=== PATIENT | male | born 1985 | race African-American/Black ===

== ENCOUNTER 2024-07-28 14:24 | Observation (INO) | payer OTHER ==
[2024-07-28] MEDS: PANTOPRAZOLE 40 MG/10 ML VIAL IVP STA (15:54)
[2024-07-28] MEDS: LORazepam 2 MG/ML INJ IV STA ×2 (15:55→18:00)
[2024-07-28] MEDS: THIAMINE 100 MG/ML 2 ML VIAL IM STA (15:55)
[2024-07-28] MEDS: ONDANSETRON 4 MG/2 ML VIAL IVP STA (15:55)
--- NOTE | 2024-07-28 15:57 | XR ---
EXAMINATION TYPE: XR chest 1V portable DATE OF EXAM: 07/28/2024 COMPARISON: NONE CLINICAL INDICATION: Male, 38 years old with history of abdominal pain; TECHNIQUE: Single frontal view of the chest is obtained. FINDINGS: Slightly elevated left hemidiaphragm. There is no focal air space opacity, pleural effusion , or pneumothorax seen. The cardiac silhouette size is within normal limits. The osseous structure s are intact. IMPRESSION: No acute cardiopulmonary process. [facility], , 07/28/2024 3:54 PM
[2024-07-28] MEDS: SODIUM CHLORIDE 0.9% 1,000 ML IV ONE (15:59)
[2024-07-28] MEDS: SODIUM CHLORIDE 0.9% 1,000 ML IV SCH (15:59)
[2024-07-28 16:26] LABS: Basophils % (A) 0 %; Eosinophils # (A) 0.1 k/uL (0-0.7); Eosinophils % (A) 1 %; HCT 39.5 % (39.0-53.0); HGB 13.1 gm/dL (13.0-17.5); Lymphocytes # (A) 0.9 k/uL (1.0-4.8); Lymphocytes % (A) 11 %; MCH 30.2 pg (25.0-35.0); MCHC 33.2 g/dL (31.0-37.0); MCV 91.1 fL (80.0-100.0); Mean Platelet Volume 8.2; Monocytes # (A) 0.4 k/uL (0-1.0); Monocytes % (A) 5 %; Neutrophils # (A) 6.7 k/uL (1.3-7.7); Neutrophils % (A) 82 %; Platelet Count 153 k/uL (150-450); RBC 4.34 m/uL (4.30-5.90); RDW 15.5 % (11.5-15.5); WBC 8.2 k/uL (3.8-10.6)
[2024-07-28 16:44] LABS: ALT 32 U/L (4-49); AST 61 U/L (17-59); African American GFR (CKD) >90 (>60 ml/min/1.73 sqM); Albumin 3.2 g/dL (3.5-5.0); Alcohol <10 mg/dL; Alkaline Phosphatase 113 U/L (38-126); Amylase 40 U/L (30-110); Anion Gap 4 mmol/L; Blood Urea Nitrogen <2 mg/dL (9-20); Calcium 8.4 mg/dL (8.4-10.2); Carbon Dioxide 29 mmol/L (22-30); Chloride 101 mmol/L (98-107); Glucose 104 mg/dL (74-99); INR 1.1 (<1.2); Lipase 233 U/L (23-300); Non-African American GFR(CKD) >90 (>60 ml/min/1.73 sqM); Partial Thromboplastin Time 26.3 sec (22.0-30.0); Potassium 3.5 mmol/L (3.5-5.1); Prothrombin Time 11.6 sec (10.0-12.5); Sodium 134 mmol/L (137-145); Total Bilirubin 0.7 mg/dL (0.2-1.3); Total Protein 6.2 g/dL (6.3-8.2)
[2024-07-28] MEDS ORDERED: NALOXONE 0.4 MG/ML 1 ML VIAL IV PRN (17:08)
[2024-07-28] MEDS: diphenhydrAMINE 50 MG/ML 1 ML VIAL IVP STA (18:00)
[2024-07-28] MEDS: METOCLOPRAMIDE 5 MG/ML 2 ML VIAL IVP STA (18:00)
--- NOTE | 2024-07-28 19:27 | ED ---
General Adult HPI - General Chief complaint: Alcohol Stated complaint: ETOH withdrawl Time Seen by Provider: 07/28/24 15:10 Source: patient, EMS, RN notes reviewed, old records reviewed Mode of arrival: EMS Limitations: no limitations - History of Present Illness Initial comments: Patient is a 38-year-old male who presents emergency department complaining of alcohol withdrawals. Presents from [place] where he was sent here over concern for alcohol drawl's. States he also had some hematemesis yesterday as well as one episode this morning. Unknown how much he actually had in terms of the hematemesis. States he last drank alcohol approximately 1 day ago. Has gone through bathroom alcohol withdrawals with seizures. Presents for further evaluation at this time. Endorses mild nausea. Is not on blood thinners. No other acute complaints at this time. - Related Data Home Medications Medication Instructions Recorded Confirmed No Known Home Medications 07/28/24 07/28/24 Allergies Allergy/AdvReac Type Severity Reaction Status Date / Time haloperidol [From Haldol] Allergy Unknown Verified 07/28/24 15:48 Review of Systems ROS Statement: Those systems with pertinent positive or pertinent negative responses have been documented in the HPI. Review of Systems: CONST: Denies fever EYES: Denies blurry vision ENT: Denies nasal congestion C/V: Denies Chest pain RESP: Denies shortness of breath GI: Endorses abdominal discomfort : Denies dysuria SKIN: Denies rash. MSK: Denies joint pain. NEURO: Denies headache ROS Other: All systems not noted in ROS Statement are negative. Past Medical History Past Medical History: Asthma Additional Past Medical History / Comment(s): etoh abuse, solitary kidney, cleft pallate History of Any Multi-Drug Resistant Organisms: None Reported Past Surgical History: No Surgical Hx Reported Past Psychological History: No Psychological Hx Reported Smoking Status: Current every day smoker Past Alcohol Use History: Abuse Past Drug Use History: Marijuana General Exam - General Exam Comments Initial Comments: General: Appears with alcohol withdrawals. HEAD: Normal with no signs of head trauma. EYES: EOMI ENT: Hearing grossly intact, normal oropharynx. No intra oral bleeding. RESPIRATORY: Clear breath sounds bilaterally. No wheezes, rales, or rhonchi. C/V: Regular rate and rhythm. S1 and S2 auscultated, no edema, peripheral pulses 2+ and intact throughout ABD: Abdomen soft, nondistended. Mild tenderness to palpation in the epigastric region. No guarding or rebound tenderness. No peritoneal signs. EXT: Normal range of motion, no obvious deformity SKIN: No rashes or lesions observed on exposed skin. NEURO: Alert and oriented x 4. Limitations: no limitations Course Vital Signs 07/28/24 07/28/24 07/28/24 14:51 16:19 18:04 Temperature 99.1 F Pulse Rate 104 H 110 H 105 H Respiratory 22 18 18 Rate Blood Pressure 167/107 156/112 146/104 O2 Sat by Pulse 99 97 98 Oximetry Medical Decision Making - Medical Decision Making Was pt. sent in by a medical professional or institution (, PA, INVESTMENT SALES ASSISTANT, urgent care, hospital, or custodial...) When possible be specific @ -No Did you speak to anyone other than the patient for history (EMS, parent, family, police, friend...)? What history was obtained from this source @ -No Did you review nursing and triage notes (agree or disagree)? Why? @ -I reviewed and agree with nursing and triage notes Were old charts reviewed (outside hosp., previous admission, EMS record, old EKG, old radiological studies, urgent care reports/EKG's, custodial records)? Report findings @ -No old charts were reviewed Differential Diagnosis (chest pain, altered mental status, abdominal pain women, abdominal pain men, vaginal bleeding, weakness, fever, dyspnea, syncope, headache, dizziness, GI bleed, back pain, seizure, CVA, palpatations, mental health, musculoskeletal)? @ -Alcohol withdrawals, pancreatitis, GI bleed. This list is not all inclusive. EKG interpreted by me (3pts min.). @ -As above X-rays interpreted by me (1pt min.). @ -Chest x-ray reveals no obvious acute cardiopulmonary process. CT interpreted by me (1pt min.). @ -None done U/S interpreted by me (1pt. min.). @ -None done What testing was considered but not performed or refused? (CT, X-rays, U/S, labs)? Why? @ -None What meds were considered but not given or refused? Why? @ -None Did you discuss the management of the patient with other professionals (professionals i.e. , PA, INVESTMENT SALES ASSISTANT, lab, RT, psych nurse, social work associate, disability services coordinator, teacher, strike operations officer, family independence case manager)? Give summary @ -Discussed with the admitting team, ARJUN Posey of [facility] who accepted the admission. Was smoking cessation discussed for >3mins.? @ -No Was critical care preformed (if so, how long)? @ -Yes, 32 minutes. Were there social determinants of health that impacted care today? How? (Homelessness, low income, unemployed, alcoholism, drug addiction, transportation, low edu. Level, literacy, decrease access to med. care, skilled nursing, rehab)? @ -No Was there de-escalation of care discussed even if they declined (Discuss DNR or withdrawal of care, Hospice)? DNR status @ -No What co-morbidities impacted this encounter? (DM, HTN, Smoking, COPD, CAD, Cancer, CVA, ARF, Chemo, Hep., AIDS, mental health diagnosis, sleep apnea, morbid obesity)? @ -None Was patient admitted / discharged? Hospital course, mention meds given and route, prescriptions, significant lab abnormalities, going to OR and other pertinent info. @ -Presents with alcohol withdrawals as well as stated hematemesis yesterday 1 episode this morning. Is not on thinners. No recent hematemesis. None in the department. Difficult time quantifying it. Is in acute alcohol withdrawals. We will obtain general workup, and patient will be administered IV Protonix, flu ids, as well as IV Ativan. He was in agreement this plan. Also given IV Zofran. Vitals are within acceptable limits. Mild tachycardia. EKG shows nonspecific T wave abnormalities. Laboratory studies remarkable for negative alcohol level. Hemoglobin is within normal limits. Chest x-ray unremarkable. Following 2 doses of IV Ativan, patient's alcohol withdrawals are improved. Still has not had any episodes of hematemesis here in the department after multiple hours. Patient will be admitted for observation for alcohol withdrawals. He was in agreement this plan. Placed on CIWA protocol. I discussed case with the admitting provider, ARJUN Posey of [facility] who accepted the admission. Undiagnosed new problem with uncertain prognosis? @ -No Drug Therapy requiring intensive monitoring for toxicity (Heparin, Nitro, Insulin, Cardizem)? @ -No Were any procedures done? @ -No Diagnosis/symptom? @ -Alcohol withdrawals Acute, or Chronic, or Acute on Chronic? @ -Acute Uncomplicated (without systemic symptoms) or Complicated (systemic symptoms)? @ -Complicated Side effects of treatment? @ -No Exacerbation, Progression, or Severe Exacerbation? @ -No Poses a threat to life or bodily function? How? (Chest pain, USA, DC, pneumonia, PE, COPD, DKA, ARF, appy, cholecystitis, CVA, Diverticulitis, Homicidal, Suicidal, threat to staff... and all critical care pts) @ -Potentially, yes - Lab Data Result diagrams: 07/28/24 16:15 07/28/24 16:15 Lab Results 07/28/24 07/28/24 07/28/24 Range/Units 16:15 16:15 16:15 WBC 8.2 (3.8-10.6) k/uL RBC 4.34 (4.30-5.90) m/uL Hgb 13.1 (13.0-17.5) gm/dL Hct 39.5 (39.0-53.0) % MCV 91.1 (80.0-100.0) fL MCH 30.2 (25.0-35.0) pg MCHC 33.2 (31.0-37.0) g/dL RDW 15.5 (11.5-15.5) % Plt Count 153 (150-450) k/uL MPV 8.2 Neutrophils % 82 % Lymphocytes % 11 % Monocytes % 5 % Eosinophils % 1 % Basophils % 0 % Neutrophils # 6.7 (1.3-7.7) k/uL Lymphocytes # 0.9 L (1.0-4.8) k/uL Monocytes # 0.4 (0-1.0) k/uL Eosinophils # 0.1 (0-0.7) k/uL Basophils # 0.0 (0-0.2) k/uL PT 11.6 (10.0-12.5) sec INR 1.1 (<1.2) APTT 26.3 (22.0-30.0) sec Sodium 134 L (137-145) mmol/L Potassium 3.5 (3.5-5.1) mmol/L Chloride 101 (98-107) mmol/L Carbon Dioxide 29 (22-30) mmol/L Anion Gap 4 mmol/L BUN <2 L (9-20) mg/dL Creatinine 0.86 (0.66-1.25) mg/dL Est GFR (CKD-EPI)AfAm >90 (>60 ml/min/1.73 sqM) Est GFR (CKD-EPI)NonAf >90 (>60 ml/min/1.73 sqM) Glucose 104 H (74-99) mg/dL Plasma Lactic Acid Jonnie (0.7-2.0) mmol/L Calcium 8.4 (8.4-10.2) mg/dL Total Bilirubin 0.7 (0.2-1.3) mg/dL AST 61 H (17-59) U/L ALT 32 (4-49) U/L Alkaline Phosphatase 113 (38-126) U/L Total Protein 6.2 L (6.3-8.2) g/dL Albumin 3.2 L (3.5-5.0) g/dL Amylase 40 (30-110) U/L Lipase 233 (23-300) U/L Serum Alcohol <10 mg/dL 07/28/24 Range/Units 16:15 WBC (3.8-10.6) k/uL RBC (4.30-5.90) m/uL Hgb (13.0-17.5) gm/dL Hct (39.0-53.0) % MCV (80.0-100.0) fL MCH (25.0-35.0) pg MCHC (31.0-37.0) g/dL RDW (11.5-15.5) % Plt Count (150-450) k/uL MPV Neutrophils % % Lymphocytes % % Monocytes % % Eosinophils % % Basophils % % Neutrophils # (1.3-7.7) k/uL Lymphocytes # (1.0-4.8) k/uL Monocytes # (0-1.0) k/uL Eosinophils # (0-0.7) k/uL Basophils # (0-0.2) k/uL PT (10.0-12.5) sec INR (<1.2) APTT (22.0-30.0) sec Sodium (137-145) mmol/L Potassium (3.5-5.1) mmol/L Chloride (98-107) mmol/L Carbon Dioxide (22-30) mmol/L Anion Gap mmol/L BUN (9-20) mg/dL Creatinine (0.66-1.25) mg/dL Est GFR (CKD-EPI)AfAm (>60 ml/min/1.73 sqM) Est GFR (CKD-EPI)NonAf (>60 ml/min/1.73 sqM) Glucose (74-99) mg/dL Plasma Lactic Acid Jonnie 0.7 (0.7-2.0) mmol/L Calcium (8.4-10.2) mg/dL Total Bilirubin (0.2-1.3) mg/dL AST (17-59) U/L ALT (4-49) U/L Alkaline Phosphatase (38-126) U/L Total Protein (6.3-8.2) g/dL Albumin (3.5-5.0) g/dL Amylase (30-110) U/L Lipase (23-300) U/L Serum Alcohol mg/dL - EKG Data -: EKG Interpreted by Me EKG Comments: 12-lead Electrocardiogram Interpretation Note EKG was reviewed and interpreted by myself. 12-lead ECG performed at 1537 is interpreted by me as revealing normal sinus rhythm at a rate of 94 beats per m inute. [place] is normal. QRS duration is 98 ms, QTc is [address] segment T wave abnormalities present... R wave progression across the precordium was satisfactory. Critical Care Time Critical Care Time: Yes Total Critical Care Time: 32 Disposition Clinical Impression: Alcohol withdrawal Disposition: ADMITTED IP TO THIS [facility] Condition: Stable Time of Disposition: 17:08
[2024-07-28] MEDS: LORazepam 2 MG/ML INJ IV PRN (22:46)
[2024-07-28] MEDS: ONDANSETRON 4 MG/2 ML VIAL IVP PRN (23:20)
[2024-07-29] MEDS: LORazepam 2 MG/ML INJ IV PRN ×2 (00:32→09:35)
[2024-07-29] MEDS: HYDROcodone/APAP 5-325MG 1 EACH TAB PO PRN ×2 (05:58→15:40)
[2024-07-29] MEDS: PANTOPRAZOLE 40 MG/10 ML VIAL IV SCH (08:14)
[2024-07-29] MEDS: chlordiazePOXIDE 25 MG CAP PO SCH (09:33)
[2024-07-29 10:29] LABS: Basophils # (A) 0.04 X 10*3/uL (0.00-0.10); Basophils % (A) 0.7 %; Eosinophils # (A) 0.04 X 10*3/uL (0.04-0.35); Eosinophils % (A) 0.7 %; HCT 38.2 % (39.6-50.0); HGB 12.8 g/dL (13.0-17.0); Lymphocytes # (A) 1.14 X 10*3/uL (0.90-5.00); Lymphocytes % (A) 18.8 %; MCH 30.5 pg (27.0-32.0); MCHC 33.5 g/dL (32.0-37.0); MCV 91.2 FL (80.0-97.0); Mean Platelet Volume 9.8 FL (9.5-12.2); Monocytes # (A) 0.65 X 10*3/uL (0.20-1.00); Monocytes % (A) 10.7 %; NRBC Per 100 WBC 0 X 10*3/uL (0.00-0.01); Neutrophils # (A) 4.19 X 10*3/uL (1.80-7.70); Neutrophils % (A) 68.8 %; Platelet Count 141 X 10*3/uL (140-440); RBC 4.19 X 10*6/uL (4.40-5.60); RDW 15.2 % (11.5-14.5); WBC 6.08 X 10*3/uL (4.50-10.00)
[2024-07-29 10:46] LABS: ALT 31 U/L (10-49); AST 54 U/L (14-35); Albumin 3.3 g/dL (3.8-4.9); Albumin/Globulin Ratio 1.27 Ratio (1.60-3.17); Alkaline Phosphatase 109 U/L (41-126); BUN/Creat Ratio <3.18 Ratio (12.00-20.00); Blood Urea Nitrogen <3.5 mg/dL (9.0-27.0); Calcium 8.4 mg/dL (8.7-10.3); Carbon Dioxide 24.2 mmol/L (21.6-31.8); Chloride 102 mmol/L (96-109); Globulin 2.6 g/dL (1.6-3.3); Glucose 95 mg/dL (70-110); Potassium 3.9 mmol/L (3.5-5.5); Sodium 136 mmol/L (135-145); Total Bilirubin 0.5 mg/dL (0.3-1.2); Total Protein 5.9 g/dL (6.2-8.2)
[2024-07-29 10:57] VITALS: RESP 16
[2024-07-29] MEDS: KETOROLAC 15 MG/ML 1 ML VIAL IVP SCH (15:36)
[2024-07-29] MEDS: LORazepam 1 MG TAB PO PRN (15:36)
[2024-07-29] MEDS ORDERED: ACETAMINOPHEN TAB 325 MG TAB PO PRN (22:22)
[2024-07-29] MEDS: BACITRACIN OINT 1 EACH PACKET TOPICAL SCH (23:43)
[2024-07-29] MEDS: THIAMINE 100 MG TAB PO SCH (23:46)
[2024-07-29] MEDS: FOLIC ACID 1 MG TAB PO SCH (23:46)
[2024-07-29] MEDS: MULTIVITAMINS, THERA 1 EACH TAB PO SCH (23:46)
--- NOTE | 2024-07-30 05:46 | P.HPIM ---
History of Present Illness H&P Date: 07/29/24 This is a pleasant 38-year-old male who presented to the emergency department with alcohol intoxication and was at [facility] for admission although was reporting having hematemesis x 2 and was sent by EMS from [facility] for medical evaluation. Patient reports he does not have a primary care provider does not live in this area and was attempting to go to [facility] for continued inpatient alcohol rehab. Patient reports he has a past medical history of asthma, EtOH abuse, solitary kidney reports to daily alcohol use as well as continued ongoing nicotine use. Patient denies any illicit drugs at this time. Patient denies any reports of wanting to hurt himself or others. Patient is requesting an advance in diet as he has had no further episodes of vomiting and denies any nausea. Hemoglobin is stable at 13.1, platelets 153 on admission. Patient was started on CIWA protocol. REVIEW OF SYSTEMS: CONSTITUTIONAL: No fever, no malaise, no fatigue. HEENT: No recent visual problems or hearing problems. Denied any sore throat. CARDIOVASCULAR: No chest pain, orthopnea, PND, no palpitations, no syncope. PULMONARY: No shortness of breath, no cough, no hemoptysis. GASTROINTESTINAL: No diarrhea, no nausea, no vomiting, no abdominal pain. NEUROLOGICAL: No headaches, no weakness, no numbness. HEMATOLOGICAL: Denies any bleeding or petechiae. GENITOURINARY: Denies any burning micturition, frequency, or urgency. MUSCULOSKELETAL/RHEUMATOLOGICAL: Reports significant right arm pain and shoulder pain from a fall prior to admission ENDOCRINE: Denies any polyuria or polydipsia. The rest of the 14-point review of systems is negative. PHYSICAL EXAMINATION: GENERAL: The patient is alert and oriented x3, not in any acute distress. Well developed, well nourished. Thin built, appears older than stated age HEENT: Pupils are round and equally reacting to light. EOMI. No scleral icterus. No conjunctival pallor. Normocephalic, atraumatic. No pharyngeal erythema. No thyromegaly. CARDIOVASCULAR: S1 and S2 muffled PULMONARY: Chest is clear to auscultation, no wheezing or crackles. ABDOMEN: Soft, nontender, nondistended, thin, normoactive bowel sounds. No palpable organomegaly. MUSCULOSKELETAL: No joint swelling or deformity. EXTREMITIES: No cyanosis, clubbing, or pedal edema. NEUROLOGICAL: Gross neurological examination did not reveal any focal deficits. SKIN: No rashes. Right shoulder and upper arm abrasion with some scabbing and sloughing noted, no drainage, redness, or swelling noted Assessment: Acute alcohol withdrawal Continued ongoing alcohol abuse History of asthma, not in exacerbation History of solitary kidney Hematemesis x 2 per patient with no episodes during hospitalization, hemoglobin is stable at 13.1 History of cleft palate Continued ongoing nicotine abuse Daily alcohol use Right shoulder and upper back abrasion, present on admission with no surrounding swelling, redness, or cellulitis noted. Sloughing and scabbing of the skin note d secondary to recent history of fall per patient GI prophylaxis DVT prophylaxis Full code Plan: Patient admitted from [facility] as he was going to register there for inpatient rehab although reported to the nursing that he had 2 episodes of hematemesis and was sent here for further medical evaluation. Patient has had no emesis while here and was started on clear liquids requesting advance in diet as he reports he cannot tolerate as food Patient does have a right upper shoulder and right upper arm abrasion from a fall that he reports happened a few days ago. Recommend cleaning with soap and water and using bacitracin to the area. Closely and if any further redness or drainage noted will consider antibiotic treatment. Patient does report pain in this area and will add as needed medications patient started on CIWA protocol and will initiate Librium and start taper Encouraged to increase activity as tolerated Discussed with the patient about calling [facility] again as he will need to initiate admission once medically stable Will monitor overnight and continue on CIWA protocol with possible discharge planning in the next 24 to 48 hours The impression and plan of care has been dictated by Taty Cornejo, Nurse Practitioner as directed. Dr. Katy MD I have performed a history and examination and MDM of this patient, discussed the same with the dictator, and agree with the dictator's assessment and plan as written ,documented as a scribe. Based on total visit time, I have performed more than 50% of the visit. Past Medical History Past Medical History: Asthma Additional Past Medical History / Comment(s): etoh abuse, solitary kidney, cleft pallate History of Any Multi-Drug Resistant Organisms: None Reported Past Surgical History: No Surgical Hx Reported Past Psychological History: No Psychological Hx Reported Smoking Status: Current every day smoker Past Alcohol Use History: Abuse Past Drug Use History: Marijuana Medications and Allergies Home Medications Medication Instructions Recorded Confirmed Type No Known Home Medications 07/28/24 07/28/24 History Allergies Allergy/AdvReac Type Severity Reaction Status Date / Time haloperidol [From Haldol] Allergy Unknown Verified 07/28/24 15:48 Physical Exam Vitals: Vital Signs Temp Pulse Pulse Resp BP BP Pulse Ox 07/29/24 03:13 98.9 F 82 20 160/87 98 07/28/24 23:28 104 H 18 153/110 96 07/28/24 22:00 104 H 20 143/104 97 07/28/24 21:00 108 H 20 147/104 97 07/28/24 20:29 104 H 20 146/94 98 07/28/24 19:00 110 H 20 143/94 97 07/28/24 18:04 105 H 18 146/104 98 07/28/24 16:19 110 H 18 156/112 97 07/28/24 14:51 99.1 F 104 H 22 167/107 99 Intake and Output 07/28/24 07/29/24 07/29/24 22:59 06:59 14:59 Intake Total 1000 Output Total 1400 Balance -400 Intake: Oral 1000 Output: Urine 1400 Other: Voiding Method Urinal Results CBC & Chem 7: 07/29/24 07:21 07/29/24 07:21 Labs: Abnormal Lab Results - Last 24 Hours (Table) 07/28/24 07/28/24 07/29/24 Range/Units 16:15 16:15 07:21 RBC 4.19 L (4.40-5.60) X 10*6/uL Hgb 12.8 L (13.0-17.0) g/dL Hct 38.2 L (39.6-50.0) % RDW 15.2 H (11.5-14.5) % Lymphocytes # 0.9 L (1.0-4.8) k/uL Sodium 134 L (137-145) mmol/L BUN <2 L (9-20) mg/dL BUN/Creatinine Ratio (12.00-20.00) Ratio Glucose 104 H (74-99) mg/dL Calcium (8.7-10.3) mg/dL AST 61 H (17-59) U/L Total Protein 6.2 L (6.3-8.2) g/dL Albumin 3.2 L (3.5-5.0) g/dL Albumin/Globulin Ratio (1.60-3.17) Ratio // Range/Units 07:21 RBC (4.40-5.60) X 10*6/uL Hgb (13.0-17.0) g/dL Hct (39.6-50.0) % RDW (11.5-14.5) % Lymphocytes # (1.0-4.8) k/uL Sodium (137-145) mmol/L BUN <3.5 L (9-20) mg/dL BUN/Creatinine Ratio <3.18 L (12.00-20.00) Ratio Glucose (74-99) mg/dL Calcium 8.4 L (8.7-10.3) mg/dL AST 54 H (17-59) U/L Total Protein 5.9 L (6.3-8.2) g/dL Albumin 3.3 L (3.5-5.0) g/dL Albumin/Globulin Ratio 1.27 L (1.60-3.17) Ratio
[2024-07-30 07:02] LABS: Basophils % (A) 0 %; Eosinophils # (A) 0.2 k/uL (0-0.7); Eosinophils % (A) 3 %; HCT 38.7 % (39.0-53.0); HGB 12.6 gm/dL (13.0-17.5); Lymphocytes # (A) 0.8 k/uL (1.0-4.8); Lymphocytes % (A) 18 %; MCH 30.5 pg (25.0-35.0); MCHC 32.5 g/dL (31.0-37.0); MCV 93.8 fL (80.0-100.0); Mean Platelet Volume 7.9; Monocytes # (A) 0.3 k/uL (0-1.0); Monocytes % (A) 5 %; Neutrophils # (A) 3.5 k/uL (1.3-7.7); Neutrophils % (A) 72 %; Platelet Count 138 k/uL (150-450); RBC 4.13 m/uL (4.30-5.90); RDW 15.4 % (11.5-15.5); WBC 4.8 k/uL (3.8-10.6)
[2024-07-30 07:41] LABS: ALT 27 U/L (4-49); AST 42 U/L (17-59); African American GFR (CKD) >90 (>60 ml/min/1.73 sqM); Alkaline Phosphatase 92 U/L (38-126); Anion Gap 3 mmol/L; Blood Urea Nitrogen 4 mg/dL (9-20); Calcium 8.7 mg/dL (8.4-10.2); Carbon Dioxide 25 mmol/L (22-30); Chloride 101 mmol/L (98-107); Glucose 118 mg/dL (74-99); Magnesium 1.5 mg/dL (1.6-2.3); Non-African American GFR(CKD) >90 (>60 ml/min/1.73 sqM); Potassium 3.9 mmol/L (3.5-5.1); Sodium 129 mmol/L (137-145); Total Bilirubin 0.6 mg/dL (0.2-1.3); Total Protein 5.8 g/dL (6.3-8.2)
[2024-07-30 08:30] VITALS: BP 145/88; PULSE 79; TEMP 98
[2024-07-30] MEDS ORDERED: Magnesium Replacement Protocol 1 EACH MISC MISCELLANE PRN (09:04)
[2024-07-30] MEDS: MAGNESIUM SULFATE-D5W PMX 1 GM in DEXTROSE/WATER 1 100ML.BAG IVPB SCH (09:35)
[2024-07-30] MEDS: LORazepam 1 MG TAB PO PRN (11:39)
[2024-07-30 12:34] VITALS: BMI 21.1
--- NOTE | 2024-07-30 13:59 | P.DS ---
Providers Date of admission: 07/28/24 17:10 Expected date of discharge: 07/30/24 Attending physician: Debra Mir Primary care physician: Stated None Hospital Course: Final diagnosis Acute alcohol withdrawal Continued ongoing alcohol abuse History of asthma, not in exacerbation History of solitary kidney Hematemesis x 2 per patient with no episodes during hospitalization, hemoglobin is stable at 13.1 History of cleft palate Continued ongoing nicotine abuse Daily alcohol use Right shoulder and upper back abrasion, present on admission with no surrounding swelling, redness, or cellulitis noted. Sloughing and scabbing of the skin noted secondary to recent history of fall per patient GI prophylaxis DVT prophylaxis Full code Discharge disposition Patient is being discharged in a stable condition with guarded prognosis to [facility] for inpatient alcohol rehab. Patient will follow-up with his primary care provider in [place] in the outpatient setting upon discharge. Patient is to continue with current medications as scheduled. Total time taken is greater than 35 minutes. Hospital course This is a 38-year-old male who was recently admitted with acute alcohol withdrawal and patient reported episodes of hematemesis while at [facility] although unwitnessed and was brought here placed on CIWA protocol. Patient's hemoglobin is stable at 12.6 and has had no further episodes. Patient is tolerating diet and recommend to use as needed Zofran. Patient maintained on CIWA along with Librium taper and is medically stable for transfer to [facility] for continued alcohol rehab. Resources were also provided in the event patient may need to go to [facility] in [place]. Currently no reports of chest pain, shortness of breath, or palpitations. Patient is afebrile. No reports of nausea or vomiting and patient is tolerating diet. Patient will be going to [facility] today. Physical exam: Gen: This is a 38-year-old male who is awake, alert and oriented x 3, thin built, appears older than stated age HEENT: Head is atraumatic, normocephalic. Pupils equal, round. Sclerae is anicteric. NECK: Supple. No JVD. No lymphadenopathy. No thyromegaly. LUNGS: Diminished breath sounds bilaterally otherwise clear to auscultation. No wheezes or rhonchi. No intercostal retractions. HEART: Regular rate and rhythm. No murmur. ABDOMEN: Soft. Bowel sounds are present. No masses. No tenderness. EXTREMITIES: No pedal edema. No calf tenderness. Right upper extremity lateral as well as shoulder with a previous abrasion with scabbing noted and no surrounding drainage, cellulitis, or redness noted NEUROLOGICAL: Patient is awake, alert and oriented x3. Cranial nerves 2 through 12 are grossly intact. Please refer to medication reconciliation sheet for a list of medications. The impression and plan of care has been dictated by Taty Cornejo, Nurse Practitioner as directed. Dr. Katy MD I have performed a history and examination and MDM of this patient, discussed the same with the dictator, and agree with the dictator's assessment and plan as written ,documented as a scribe. Based on total visit time, I have performed more than 50% of the visit. Patient Condition at Discharge: Stable Plan - Discharge Summary Discharge Rx Participant: No New Discharge Prescriptions: New Folic Acid 1 mg PO DAILY #30 tablet Neomycin/Bacitracin/Polymyxinb [Neosporin Ointment] 1 applic TOPICAL BID #15 gm Ibuprofen [Motrin] 600 mg PO Q6HR PRN #20 tab PRN Reason: Pain Multivitamins, Thera [Multivitamin] 1 tab PO DAILY #30 tablet Pantoprazole Sodium [Protonix] 40 mg PO DAILY #30 tab Thiamine [Vitamin B-1] 100 mg PO DAILY #30 tablet Ondansetron Odt [Zofran Odt] 4 mg PO Q8HR PRN #20 tab PRN Reason: Nausea Discharge Medication List Folic Acid 1 mg PO DAILY #30 tablet 07/30/24 [Rx] Ibuprofen [Motrin] 600 mg PO Q6HR PRN #20 tab 07/30/24 [Rx] Multivitamins, Thera [Multivitamin] 1 tab PO DAILY #30 tablet 07/30/24 [Rx] Neomycin/Bacitracin/Polymyxinb [Neosporin Ointment] 1 applic TOPICAL BID #15 gm 07/30/24 [Rx] Ondansetron Odt [Zofran Odt] 4 mg PO Q8HR PRN #20 tab 07/30/24 [Rx] Pantoprazole Sodium [Protonix] 40 mg PO DAILY #30 tab 07/30/24 [Rx] Thiamine [Vitamin B-1] 100 mg PO DAILY #30 tablet 07/30/24 [Rx] Follow up Appointment(s)/Referral(s): Skinny Elliott [NON-STAFF] - 1 Week Activity/Diet/Wound Care/Special Instructions: Activity limited until follow-up Recommend calling [facility] and making an intake appointment if they will accept you Call [facility] for inpatient alcohol rehab in [place] [phone] Avoid alcohol use and exposure Apply bacitracin to your right shoulder and upper arm twice daily and keep as clean as possible If working with a dirty environment recommend covering that area Avoid picking the scabs Follow-up with your primary care provider on discharge Prescription sent to [facility] Discharge/Stand Alone Forms: AA Meetings [facility] Discharge Disposition: OTHER INSTITUTION NOT DEFINED
== END 2024-07-30 14:17 | disposition other institution (70) ==
LOC: EC 14:24 → 6NMEDSUR 17:10 → 1SOBS 22:39
PROVIDERS: ADMIT Hospitalist; ATTEND Hospitalist
DX: F10.139 Alcohol abuse with withdrawal, unspecified (principal); K92.0 Hematemesis; J45.909 Unspecified asthma, uncomplicated; Q60.0 Renal agenesis, unilateral; S20.419A Abrasion of unspecified back wall of thorax, initial encounter; S40.211A Abrasion of right shoulder, initial encounter; S40.811A Abrasion of right upper arm, initial encounter; W19.XXXA Unspecified fall, initial encounter; Y90.0 Blood alcohol level of less than 20 mg/100 ml; Z88.8 Allergy status to other drugs, medicaments and biological substances; F17.200 Nicotine dependence, unspecified, uncomplicated; Z87.730 Personal history of (corrected) cleft lip and palate
CPT/HCPCS: 96361; 96365; 96366; 96375 ×2; 96376 ×3; 96372; 99291; 36415; 93005; 86900; 86901; 80053 ×3; 82150; 83605; 83690; 83735; 85025 ×3; 85610; 85730; 86850; 71045; G0378 ×4; G0480; J2060 ×2; J1200; J2765; J3411; J2405 ×3; J3475; J1885 ×2; J2470 ×3; 80320

== ENCOUNTER 2024-08-04 21:35 | Observation (INO) | payer OTHER ==
[2024-08-04] MEDS: LORazepam 2 MG/ML INJ IV STA (22:21)
--- NOTE | 2024-08-04 22:21 | ED ---
General Adult HPI - General Chief complaint: Syncope Stated complaint: Seizures Time Seen by Provider: 08/04/24 21:37 Source: EMS Mode of arrival: EMS Limitations: no limitations - History of Present Illness Initial comments: Patient is a pleasant 38-year-old male past medical history alcohol use disorder currently in remission, hypertension, sedative-hypnotic abuse, presenting today for seizure. Patient was recently discharged to [facility] after being treated for alcohol withdrawal seizures here in the hospital. Today the patient states that he was walking up the stairs and he felt spots in his vision, he went to talk to one of the caregivers at [facility] and told him he was concerned that he was going to have a seizure. His blood pressure was checked and he was told that he was okay. About 2 hours later patient was walking and witnessed to have seizure-like activity causing him to fall back and hit the back of his head and neck on a door. Resolved spontaneously. Patient did have an episode of incontinence. Patient has since returned to baseline. Patient states that with the exception of alcohol withdrawal seizures he has no history of seizure disorder. He states he is concerned that his blood pressure is too high. Endorses a mild headache and right sided neck pain. He currently denies chest pain, difficulty in breathing, abdominal pain, nausea, vomiting, numbness or weakness of hist extremities, vision changes, fevers. States he has not consumed alcohol since prior to his recent hospitalization. Patient is not on blood thinners. - Related Data Home Medications Medication Instructions Recorded Confirmed Acetaminophen Tab [Tylenol] 650 mg PO Q4H PRN 08/05/24 08/05/24 Calcium Phos/D3/Magnesium/Zinc 1 tab PO TID PRN 08/05/24 08/05/24 [Vgavcpm-Nvh-Knkp-Vitamin D3] Chlorpheniramine Maleate 4 mg PO Q4H PRN 08/05/24 08/05/24 [Chlor-Trimeton] Ibuprofen [Motrin Ib] 600 mg PO Q6H PRN 08/05/24 08/05/24 Loperamide HCl [Imodium A-D] 2 mg PO QID PRN 08/05/24 08/05/24 Mag Hydrox/Aluminum Hyd/Simeth 30 ml PO Q4H PRN 08/05/24 08/05/24 [Mylanta Maximum Strength Liq] Melatonin 10 mg PO HS 08/05/24 08/05/24 cloNIDine HCL [Catapres] 0.1 - 0.3 mg PO Q4H PRN 08/05/24 08/05/24 hydroCHLOROthiazide [Hydrodiuril] 25 mg PO DAILY 08/05/24 08/05/24 ondansetron HCL [Zofran] 8 mg PO Q6H PRN 08/05/24 08/05/24 Previous Rx's Medication Instructions Recorded Folic Acid 1 mg PO DAILY #30 tablet 07/30/24 Multivitamins, Thera [Multivitamin 1 tab PO DAILY #30 tablet 07/30/24 (formulary)] Neomycin/Bacitracin/Polymyxinb 1 applic TOPICAL BID #15 gm 07/30/24 [Neosporin Ointment] Pantoprazole Sodium [Protonix] 40 mg PO DAILY #30 tab 07/30/24 Thiamine [Vitamin B-1] 100 mg PO DAILY #30 tablet 07/30/24 Allergies Allergy/AdvReac Type Severity Reaction Status Date / Time almond Allergy Unknown Verified 08/05/24 07:38 haloperidol [From Haldol] Allergy Unknown Verified 08/05/24 07:38 walnut Allergy Unknown Verified 08/05/24 07:38 Review of Systems ROS Statement: Those systems with pertinent positive or pertinent negative responses have been documented in the HPI. ROS Other: All systems not noted in ROS Statement are negative. Past Medical History Past Medical History: Asthma Additional Past Medical History / Comment(s): etoh abuse, solitary kidney, cleft pallate History of Any Multi-Drug Resistant Organisms: None Reported Past Surgical History: No Surgical Hx Reported Past Psychological History: No Psychological Hx Reported Smoking Status: Current every day smoker General Exam - General Exam Comments Initial Comments: PE: CONSTITUTIONAL: No apparent distress, well appearing SKIN: Warm, dry, no jaundice, hives or petechiae EYES: Pupils are equally round, extraocular movements intact without nystagmus, clear conjunctiva, non-icteric sclera HENT: Normocephalic, atraumatic, moist mucus membranes, oropharynx clear without exudates NECK: , Patient arrives without C collar, Full range of motion, normal appearance, Midline spinal TTP near C6/7 without step offs or hematomas, TTP more prominent along the lateral right paraspinal muscles, C collar applied PULMONARY: Clear to auscultation without wheezes, rhonchi, or rales, normal excursion, no accessory muscle use and no stridor CARDIOVASCULAR: Regular rate, rhythm, normal S1 and S2. No appreciated murmurs, rubs or gallops. Strong radial pulses with intact distal perfusion. No lower extremity edema GASTROINTESTINAL: Soft, active bowel sounds throughout, non-tender, non- distended, no palpable masses, no rebound or guarding. No hepatosplenomegaly MUSCULOSKELETAL: Extremities have no gross deformity, no edema, redness, or swelling. NEUROLOGIC:_a/o x 3, GCS 15, normal mentation and speech. Moves all extremities x 4 without motor or sensory deficit PSYCHIATRIC:_anxious mood and affect, thought process is clear and linear though speech is somewhat pressured Limitations: no limitations Course Vital Signs 08/04/24 08/05/24 08/05/24 21:38 00:34 03:41 Temperature 99.0 F Pulse Rate 95 84 82 Respiratory 18 16 18 Rate Blood Pressure 161/110 151/106 128/86 O2 Sat by Pulse 97 96 97 Oximetry 08/05/24 08/05/24 08/05/24 07:16 08:35 11:48 Temperature 98.0 F Pulse Rate 69 73 78 Respiratory 18 20 20 Rate Blood Pressure 120/73 118/90 129/92 O2 Sat by Pulse 97 98 97 Oximetry 08/05/24 08/05/24 13:40 16:34 Temperature 98.7 F Pulse Rate 74 73 Respiratory 20 20 Rate Blood Pressure 130/94 132/96 O2 Sat by Pulse 98 99 Oximetry EKG Findings - EKG Comments: EKG Findings:: Sinus rhythm with LVH, rate 91 bpm, intervals within normal limits, normal axis, enlarged T waves in lead V1, this was compared to EKG performed on 07/28/2024, T waves on today's EKG in the lateral leads appear more prominent than prior, Medical Decision Making - Medical Decision Making Was pt. sent in by a medical professional or institution (, PA, ESTATE AND TRUST TAX PRINCIPAL, urgent care, hospital, or [facility]...) When possible be specific @ -Yes patient was sent in by [facility] facility Did you speak to anyone other than the patient for history (EMS, parent, family, police, friend...)? What history was obtained from this source @ -No Did you review nursing and triage notes (agree or disagree)? Why? @ -I reviewed and agree with nursing and triage notes Were old charts reviewed (outside hosp., previous admission, EMS record, old EKG, old radiological studies, urgent care reports/EKG's, [facility] records)? Report findings @ -Medical records reviewed- reviewed discharge summary from recent hospitalization, 07/30/2024, patient treated for alcohol withdrawal, at time of discharge patient was not discharged with antihypertensives or benzodiazepines per discharge summary Additionally reviewed paperwork arriving with patient from [facility] patient had a witnessed seizure at their facility this evening Differential Diagnosis (chest pain, altered mental status, abdominal pain women, abdominal pain men, vaginal bleeding, weakness, fever, dyspnea, syncope, headache, dizziness, GI bleed, back pain, seizure, CVA, palpatations, mental health, musculoskeletal)? @Differential Seizure: Recurrent seizure disorder, febrile seizure, alcohol withdrawal, stimulants, meningitis, encephalitis, intercranial hemorrhage, intracranial tumor, stroke, e clampsia, thyrotoxicosis, hypocalcemia, hyponatremia, hypernatremia, hypomagnesemia, psychogenic, this is not meant to be an all-inclusive list. EKG interpreted by me (3pts min.). @ -As above X-rays interpreted by me (1pt min.). @Reviewed chest x-ray, appears to show possible left upper lobe consolidation, agree with radiologist interpretation no patient's lungs are clear to auscultation he does not currently have symptoms of pneumonia at this point we will withhold antibiotics CT interpreted by me (1pt min.). I personally reviewed CT brain I see no evidence of hemorrhage or mass effect or skull fracture, personally reviewed CT C-spine I see no evidence of fracture or malalignment I agree with radiologist interpretation U/S interpreted by me (1pt. min.). @ -None done What testing was considered but not performed or refused? (CT, X-rays, U/S, labs)? Why? @ -None What meds were considered but not given or refused? Why? @ -None Did you discuss the management of the patient with other professionals (professionals i.e. , PA, ESTATE AND TRUST TAX PRINCIPAL, lab, RT, psych nurse, manager social media, whip sawyer, teacher, corrections officer, case monitor)? Give summary @ -No Was smoking cessation discussed for >3mins.? @ -No Was critical care preformed (if so, how long)? @ -No Were there social determinants of health that impacted care today? How? (Homelessness, low income, unemployed, alcoholism, drug addiction, transpor tation, low edu. Level, literacy, decrease access to med. care, fci, rehab)? @ -No Was there de-escalation of care discussed even if they declined (Discuss DNR or withdrawal of care, Hospice)? @ -No What co-morbidities impacted this encounter? (DM, HTN, Smoking, COPD, CAD, Cancer, CVA, ARF, Chemo, Hep., AIDS, mental health diagnosis, sleep apnea, morbid obesity)? @Hypertension, alcoholism Was patient admitted / discharged? Hospital course, mention meds given and route, prescriptions, significant lab abnormalities, going to OR and other pertinent info. @Admission-patient is a 38-year-old male history alcohol use disorder, currently in remission with alcohol withdrawal seizures, sedative-hypnotic dependence, now in remission, hypertension presenting today for seizure. Of note patient has recently been admitted for alcohol drawl seizures and was cleared for discharge about 3 to 4 days ago. Patient has no history of seizures outside of alcohol withdrawal seizures. CT brain C-spine was obtained due to head and neck pain after seizure. Plan for comprehensive labs for seizure workup. Labs overall reassuring. CT brain, C-spine only significant for small mount of gas in the soft tissue left side of the neck with lymphadenopathy. I discussed this with radiologist and unless patient has significant leukocytosis likely unremarkable finding and secondary to IV placement. Patient does have an IV in the left lower left upper extremity. Additionally, trauma to neck was on right side not left. On reassessment patient remains at baseline mental status. I discussed with him these findings, including lymphadenmopathy, and did an oropharyngeal exam, patient does not have any visible abscess or infectious process within the oropharynx that would be giving rise to this lymphadenopathy. Additionally, I cleared patient's C spine.The patient denies any numbess, tingling, or weakness of the extremities when moving neck through full ROM. The patient is able to range their neck completely without midline cervical pain, numbness, tingling or weakness. Notes right sided paraspinal muscle TTP. He voices concern as he has never had a seizure outside of being treated for alcohol withdrawal and he states he has been clean from alcohol ever since being admitted to the hospital. Due to patient's new onset seizure with unknown etiology patient be admitted for observation and neurology consultation. Patient agreeable with POC. Undiagnosed new problem with uncertain prognosis? @ -No Drug Therapy requiring intensive monitoring for toxicity (Heparin, Nitro, Insulin, Cardizem)? @ -No Were any procedures done? @ -No Diagnosis/symptom? Seizure, lymphadenopathy of neck Acute, or Chronic, or Acute on Chronic? acute Uncomplicated (without systemic symptoms) or Complicated (systemic symptoms)? complicated Side effects of treatment? @ -No Exacerbation, Progression, or Severe Exacerbation? @ -No Poses a threat to life or bodily function? How? (Chest pain, [place], [place], pneumonia, PE, COPD, DKA, ARF, appy, cholecystitis, CVA, Diverticulitis, Homicidal, Suicidal, threat to staff... and all critical care pts) potentially - Lab Data Result diagrams: 08/06/24 05:24 08/06/24 05:24 Lab Results 08/04/24 08/04/24 08/04/24 Range/Units 22:19 22:19 22:19 WBC 6.0 (3.8-10.6) k/uL RBC 4.34 (4.30-5.90) m/uL Hgb 13.6 (13.0-17.5) gm/dL Hct 40.9 (39.0-53.0) % MCV 94.2 (80.0-100.0) fL MCH 31.3 (25.0-35.0) pg MCHC 33.2 (31.0-37.0) g/dL RDW 15.5 (11.5-15.5) % Plt Count 272 (150-450) k/uL MPV 7.3 Neutrophils % 76 % Lymphocytes % 13 % Monocytes % 8 % Eosinophils % 1 % Basophils % 0 % Neutrophils # 4.6 (1.3-7.7) k/uL Lymphocytes # 0.8 L (1.0-4.8) k/uL Monocytes # 0.5 (0-1.0) k/uL Eosinophils # 0.1 (0-0.7) k/uL Basophils # 0.0 (0-0.2) k/uL Sodium 130 L (137-145) mmol/L Potassium 4.6 (3.5-5.1) mmol/L Chloride 96 L (98-107) mmol/L Carbon Dioxide 26 (22-30) mmol/L Anion Gap 8 mmol/L BUN 12 (9-20) mg/dL Creatinine 0.88 (0.66-1.25) mg/dL Est GFR (CKD-EPI)AfAm >90 (>60 ml/min/1.73 sqM) Est GFR (CKD-EPI)NonAf >90 (>60 ml/min/1.73 sqM) Glucose 95 (74-99) mg/dL POC Glucose (mg/dL) (70-110) mg/dL POC Glu Dinkey Locomotive Engineer ID Lactic Ac Sepsis Rflx Plasma Lactic Acid Jonnie 2.2 H* (0.7-2.0) mmol/L Calcium 9.3 (8.4-10.2) mg/dL Magnesium 2.1 (1.6-2.3) mg/dL Total Bilirubin 0.7 (0.2-1.3) mg/dL AST 41 (17-59) U/L ALT 28 (4-49) U/L Alkaline Phosphatase 73 (38-126) U/L Creatine Kinase 429 H (55-170) U/L Troponin I (0.000-0.034) ng/mL NT-Pro-B Natriuret Pep 28 pg/mL Total Protein 7.7 (6.3-8.2) g/dL Albumin 4.4 (3.5-5.0) g/dL Urine Color Urine Appearance (Clear) Urine pH (5.0-8.0) Ur Specific [place] (1.001-1.035) Urine Protein (Negative) Urine Glucose (UA) (Negative) Urine Ketones (Negative) Urine Blood (Negative) Urine Nitrite (Negative) Urine Bilirubin (Negative) Urine Urobilinogen (<2.0) mg/dL Ur Leukocyte Esterase (Negative) Urine Opiates Screen (NotDetected) Ur Oxycodone Screen (NotDetected) Urine Methadone Screen (NotDetected) Ur Barbiturates Screen (NotDetected) U Tricyclic Antidepress (NotDetected) Ur Phencyclidine Scrn (NotDetected) Ur Amphetamines Screen (NotDetected) U Methamphetamines Scrn (NotDetected) U Benzodiazepines Scrn (NotDetected) Urine Cocaine Screen (NotDetected) U Marijuana (THC) Screen (NotDetected) Serum Alcohol <10 mg/dL 08/04/24 08/04/24 08/04/24 Range/Units 22:24 22:27 22:39 WBC (3.8-10.6) k/uL RBC (4.30-5.90) m/uL Hgb (13.0-17.5) gm/dL Hct (39.0-53.0) % MCV (80.0-100.0) fL MCH (25.0-35.0) pg MCHC (31.0-37.0) g/dL RDW (11.5-15.5) % Plt Count (150-450) k/uL MPV Neutrophils % % Lymphocytes % % Monocytes % % Eosinophils % % Basophils % % Neutrophils # (1.3-7.7) k/uL Lymphocytes # (1.0-4.8) k/uL Monocytes # (0-1.0) k/uL Eosinophils # (0-0.7) k/uL Basophils # (0-0.2) k/uL Sodium (137-145) mmol/L Potassium (3.5-5.1) mmol/L Chloride (98-107) mmol/L Carbon Dioxide (22-30) mmol/L Anion Gap mmol/L BUN (9-20) mg/dL Creatinine (0.66-1.25) mg/dL Est GFR (CKD-EPI)AfAm (>60 ml/min/1.73 sqM) Est GFR (CKD-EPI)NonAf (>60 ml/min/1.73 sqM) Glucose (74-99) mg/dL POC Glucose (mg/dL) 93 (70-110) mg/dL POC Glu Dinkey Locomotive Engineer ID [place] Lactic Ac Sepsis Rflx Plasma Lactic Acid Jonnie (0.7-2.0) mmol/L Calcium (8.4-10.2) mg/dL Magnesium (1.6-2.3) mg/dL Total Bilirubin (0.2-1.3) mg/dL AST (17-59) U/L ALT (4-49) U/L Alkaline Phosphatase (38-126) U/L Creatine Kinase (55-170) U/L Troponin I 0.013 (0.000-0.034) ng/mL NT-Pro-B Natriuret Pep pg/mL Total Protein (6.3-8.2) g/dL Albumin (3.5-5.0) g/dL Urine Color Colorless Urine Appearance Clear (Clear) Urine pH 6.5 (5.0-8.0) Ur Specific [place] 1.010 (1.001-1.035) Urine Protein Negative (Negative) Urine Glucose (UA) Negative (Negative) Urine Ketones Trace H (Negative) Urine Blood Negative (Negative) Urine Nitrite Negative (Negative) Urine Bilirubin Negative (Negative) Urine Urobilinogen <2.0 (<2.0) mg/dL Ur Leukocyte Esterase Negative (Negative) Urine Opiates Screen Not Detected (NotDetected) Ur Oxycodone Screen Not Detected (NotDetected) Urine Methadone Screen Not Detected (NotDetected) Ur Barbiturates Screen Not Detected (NotDetected) U Tricyclic Antidepress Not Detected (NotDetected) Ur Phencyclidine Scrn Not Detected (NotDetected) Ur Amphetamines Screen Not Detected (NotDetected) U Methamphetamines Scrn Not Detected (NotDetected) U Benzodiazepines Scrn Detected H (NotDetected) Urine Cocaine Screen Not Detected (NotDetected) U Marijuana (THC) Screen Not Detected (NotDetected) Serum Alcohol mg/dL 08/04/24 Range/Units 22:56 WBC (3.8-10.6) k/uL RBC (4.30-5.90) m/uL Hgb (13.0-17.5) gm/dL Hct (39.0-53.0) % MCV (80.0-100.0) fL MCH (25.0-35.0) pg MCHC (31.0-37.0) g/dL RDW (11.5-15.5) % Plt Count (150-450) k/uL MPV Neutrophils % % Lymphocytes % % Monocytes % % Eosinophils % % Basophils % % Neutrophils # (1.3-7.7) k/uL Lymphocytes # (1.0-4.8) k/uL Monocytes # (0-1.0) k/uL Eosinophils # (0-0.7) k/uL Basophils # (0-0.2) k/uL Sodium (137-145) mmol/L Potassium (3.5-5.1) mmol/L Chloride (98-107) mmol/L Carbon Dioxide (22-30) mmol/L Anion Gap mmol/L BUN (9-20) mg/dL Creatinine (0.66-1.25) mg/dL Est GFR (CKD-EPI)AfAm (>60 ml/min/1.73 sqM) Est GFR (CKD-EPI)NonAf (>60 ml/min/1.73 sqM) Glucose (74-99) mg/dL POC Glucose (mg/dL) (70-110) mg/dL POC Glu Dinkey Locomotive Engineer ID Lactic Ac Sepsis Rflx Y Plasma Lactic Acid Jonnie (0.7-2.0) mmol/L Calcium (8.4-10.2) mg/dL Magnesium (1.6-2.3) mg/dL Total Bilirubin (0.2-1.3) mg/dL AST (17-59) U/L ALT (4-49) U/L Alkaline Phosphatase (38-126) U/L Creatine Kinase (55-170) U/L Troponin I (0.000-0.034) ng/mL NT-Pro-B Natriuret Pep pg/mL Total Protein (6.3-8.2) g/dL Albumin (3.5-5.0) g/dL Urine Color Urine Appearance (Clear) Urine pH (5.0-8.0) Ur Specific [place] (1.001-1.035) Urine Protein (Negative) Urine Glucose (UA) (Negative) Urine Ketones (Negative) Urine Blood (Negative) Urine Nitrite (Negative) Urine Bilirubin (Negative) Urine Urobilinogen (<2.0) mg/dL Ur Leukocyte Esterase (Negative) Urine Opiates Screen (NotDetected) Ur Oxycodone Screen (NotDetected) Urine Methadone Screen (NotDetected) Ur Barbiturates Screen (NotDetected) U Tricyclic Antidepress (NotDetected) Ur Phencyclidine Scrn (NotDetected) Ur Amphetamines Screen (NotDetected) U Methamphetamines Scrn (NotDetected) U Benzodiazepines Scrn (NotDetected) Urine Cocaine Screen (NotDetected) U Marijuana (THC) Screen (NotDetected) Serum Alcohol mg/dL Disposition Clinical Impression: Seizure Disposition: ADMITTED IP TO THIS HOSP Condition: Stable
[2024-08-04] MEDS: SODIUM CHLORIDE 0.9% 1,000 ML IV STA (22:22)
[2024-08-04 22:38] LABS: Glucose,Whole Blood 93 mg/dL (70-110)
[2024-08-04 22:45] LABS: Basophils % (A) 0 %; Eosinophils # (A) 0.1 k/uL (0-0.7); Eosinophils % (A) 1 %; HCT 40.9 % (39.0-53.0); HGB 13.6 gm/dL (13.0-17.5); Lymphocytes # (A) 0.8 k/uL (1.0-4.8); Lymphocytes % (A) 13 %; MCH 31.3 pg (25.0-35.0); MCHC 33.2 g/dL (31.0-37.0); MCV 94.2 fL (80.0-100.0); Mean Platelet Volume 7.3; Monocytes # (A) 0.5 k/uL (0-1.0); Monocytes % (A) 8 %; Neutrophils # (A) 4.6 k/uL (1.3-7.7); Neutrophils % (A) 76 %; Platelet Count 272 k/uL (150-450); RBC 4.34 m/uL (4.30-5.90); RDW 15.5 % (11.5-15.5)
[2024-08-04 22:47] LABS: ALT 28 U/L (4-49); African American GFR (CKD) >90 (>60 ml/min/1.73 sqM); Albumin 4.4 g/dL (3.5-5.0); Alcohol <10 mg/dL; Anion Gap 8 mmol/L; Blood Urea Nitrogen 12 mg/dL (9-20); Calcium 9.3 mg/dL (8.4-10.2); Carbon Dioxide 26 mmol/L (22-30); Chloride 96 mmol/L (98-107); Creatine Kinase 429 U/L (55-170); Glucose 95 mg/dL (74-99); Non-African American GFR(CKD) >90 (>60 ml/min/1.73 sqM); Sodium 130 mmol/L (137-145); Total Bilirubin 0.7 mg/dL (0.2-1.3); Total Protein 7.7 g/dL (6.3-8.2)
[2024-08-04 22:53] LABS: AST 41 U/L (17-59); Alkaline Phosphatase 73 U/L (38-126); Magnesium 2.1 mg/dL (1.6-2.3); Potassium 4.6 mmol/L (3.5-5.1)
[2024-08-04 22:54] LABS: NT-Pro-B-Type Natriuretic Pept 28 pg/mL
--- NOTE | 2024-08-04 22:55 | CT ---
EXAMINATION TYPE: CT brain cspine wo con DATE OF EXAM: 08/04/2024 10:41 PM COMPARISON: None. CLINICAL INDICATION: Male, 38 years old with history of fall, hit back of head and neck; pt [facility] from ETOH withdrawl with c/o seizure. pt has been experiencing HTN but has been comp liant with BP meds, started seeing spots around 6pm today and had a sycopal episode resulting in ajit ing his head on a metal door. Denies blood thinners, pain TECHNIQUE: Brain: Multiple axial CT images of the brain were obtained without IV contrast. Cspine: Axial CT images from the skull base to the inferior aspect of T2 we obtained without intraven ous contrast. Coronal and sagittal reformatted images were also reviewed. . CT DLP: 1247 mGycm, Automated exposure control for dose reduction was used. FINDINGS: Brain: Extra-axial spaces: No abnormal extra-axial fluid collections. Ventricular system: Within normal limits Cerebral parenchyma: No acute intraparenchymal hemorrhage or mass effect. The toribio-white junction is well differentiated. Cerebellum: Unremarkable. Mass effect: No evidence of midline shift. Intracranial vasculature: unremarkable Soft tissues: Normal. Calvarium/osseous structures: No depressed skull fracture. Paranasal sinuses and mastoid air cells: Clear. Visualized orbits: Orbital contents are intact. Cervical spine: Fracture: None. Osseous structures: Multilevel degenerative disc disease changes with endplate spurring and disc oste ophyte complex's. Vertebral alignment: Within normal limits. Spinal canal/Neural Foramina: No evidence of significant spinal canal narrowing. No evidence for sign ificant neural foraminal stenosis. Neck soft tissues: The left neck shows multiple soft tissue probable enlarged lymph nodes measuring u p to 9 mm in short axis. Within the left neck there are few scattered foci of gas series 305 image 48 . Other: The airway is patent. The lung apices are clear. IMPRESSION: 1. No acute intracranial process. 2. Few scattered foci of gas within the left neck unclear etiology unclear if this is in the vascula ture structures.. There appears to be multiple lymph nodes in the anterior left neck which are promin ent asymmetric series 305 image 60 correlate for lymphadenopathy. 3. No evidence of cervical spine fracture. 4. Moderate multilevel degenerative disc disease. [facility], Workstation: [id number], 08/04/2024 10:52 PM
[2024-08-04 22:58] LABS: Appearance,Urine Clear (Clear); Bilirubin,Urine Negative (Negative); Blood,Urine Negative (Negative); Color,Urine Colorless; Glucose,Urine (UA) Negative (Negative); Ketones,Urine Trace (Negative); Leukocyte Esterase,Urine Negative (Negative); Nitrite,Urine Negative (Negative); PH, Urine 6.5 (5.0-8.0); Protein,Urine Negative (Negative); Urobilinogen,Urine <2.0 mg/dL (<2.0)
--- NOTE | 2024-08-04 23:00 | XR ---
EXAMINATION TYPE: XR chest 1V DATE OF EXAM: 08/04/2024 10:53 PM COMPARISON: Chest radiographs from 07/28/2024 CLINICAL INDICATION: Male, 38 years old with history of seizure vs syncope; [facility] TECHNIQUE: XR chest 1V Frontal view of the chest. FINDINGS: Lungs/Pleura: Opacities in the left upper lobe medially possibly due to patient positioning. There is no evidence of pleural effusion, focal consolidation, or pneumothorax. Pulmonary vascularity: Unremarkable. Heart/mediastinum: Cardiomediastinal silhouette is unremarkable. Musculoskeletal: No acute osseous pathology. Other findings: None IMPRESSION: Left upper lobe airspace opacitie and a rotated exam possibly due to positioning [facility], , 08/04/2024 10:58 PM
[2024-08-04 23:15] LABS: Amphetamine Screen,Urine Not Detected (NotDetected); Barbiturate Screen,Urine Not Detected (NotDetected); Benzodiazepines Screen,Urine Detected (NotDetected); Cocaine Screen,Urine Not Detected (NotDetected); Methadone Screen, Urine Not Detected (NotDetected); Opiate Screen,Urine Not Detected (NotDetected); Oxycodone Screen, Urine Not Detected (NotDetected); Phencyclidine Screen,Urine Not Detected (NotDetected); Tricyclic Antidepressant,Urine Not Detected (NotDetected); Urn Cannabinoid Scrn Not Detected (NotDetected)
[2024-08-05] MEDS ORDERED: ACETAMINOPHEN TAB 325 MG TAB PO PRN (01:47)
[2024-08-05] MEDS ORDERED: NALOXONE 0.4 MG/ML 1 ML VIAL IV PRN (01:47)
[2024-08-05] MEDS ORDERED: ONDANSETRON 4 MG/2 ML VIAL IVP PRN (01:47)
[2024-08-05] MEDS: cloNIDine HCL 0.1 MG TAB PO STA (02:09)
[2024-08-05] MEDS: SODIUM CHLORIDE 0.9% 1,000 ML IV SCH (02:10)
[2024-08-05] MEDS: FAMOTIDINE 20 MG TAB PO SCH (08:37)
[2024-08-05] MEDS: ENOXAPARIN 40 MG/0.4 ML SYRINGE SQ SCH (08:37)
[2024-08-05] MEDS ORDERED: LORazepam 2 MG/ML INJ IV PRN (13:21)
[2024-08-05] MEDS ORDERED: LOPERAMIDE 2 MG CAP PO PRN (13:21)
[2024-08-05] MEDS ORDERED: cloNIDine HCL 0.1 MG TAB PO PRN (13:21)
[2024-08-05] MEDS ORDERED: MAG HYDROX/AL HYDROX/SIMETH 30 ML CUP PO PRN (13:21)
[2024-08-05] MEDS ORDERED: ONDANSETRON ODT 8 MG TAB.RAPDIS PO PRN (13:21)
[2024-08-05] MEDS: levETIRAcetam IV 500 MG/5 ML VIAL IVP SCH (13:43)
--- NOTE | 2024-08-05 13:49 | CT ---
EXAMINATION TYPE: CT chest wo con DATE OF EXAM: 08/05/2024 COMPARISON: Chest radiograph dated 08/04/2024 CLINICAL INDICATION: Male, 38 years old with history of left upper lobe mass/pneumonia; [facility], PNEUMONI A TECHNIQUE: CT scan of the thorax is performed without IV contrast. CT DLP: 229.[address] CTDI: mGy Automated exposure control for dose reduction was used. FINDINGS: LUNGS: The lungs are grossly clear, there is no concerning parenchymal mass or nodule identified. T here is no pleural effusion or pneumothorax seen. The tracheobronchial tree is patent. MEDIASTINUM: Lack of IV contrast is noted to limit evaluation for mediastinal and especially hilar ad enopathy. There are no definitive greater than 1 cm hilar or mediastinal lymph nodes. No cardiomega ly or pericardial effusion is seen. The heart size is normal. Scanning through the upper abdomen reveals surgical absence of the right kidney and 2 approximately 2 . 42.5 cm cystic mass in the region of the right adrenal gland likely representing right adrenal cyst or adenoma. There is compensatory hypertrophy of the left kidney. IMPRESSION: 1. No left lung mass. 2. No acute cardiopulmonary disease. 3. 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 4. 2 right renal nodules/cysts as described above. Follow-up recommendations for incidental pulmonary nodules are per [employer]?s [place]ion or [place]. [facility], , 08/05/2024 1:47 PM
[2024-08-05] MEDS: ALPRAZolam 0.25 MG TAB PO PRN (13:51)
--- NOTE | 2024-08-05 14:22 | HP ---
HISTORY AND PHYSICAL CHIEF COMPLAINTS: Syncope and seizure. HISTORY OF PRESENT ILLNESS: This is a 38-year-old gentleman with a past medical history significant for EtOH and previous history of seizures, who was in [place]. The patient's last drink was about 2 weeks ago. The patient had apparently 1 generalized clonic-tonic seizure in [place] and 1 in the ER also. The patient is being closely monitored at this time. There is no history of any fever, rigors, or chills. Lactic acid is elevated. PAST MEDICAL HISTORY: Reviewed include, 1. History of EtOH. 2. History of seizures, asthma. HOME MEDICATIONS: Reviewed include Zofran. Dose and rest of medications reviewed. ALLERGIES: [place]. Rest of allergies reviewed. FAMILY HISTORY: No history of heart disease or strokes in the family. SOCIAL HISTORY: Alcohol, smoking, THC. REVIEW OF SYSTEMS: A 14-point review of systems is negative except as mentioned earlier. PHYSICAL EXAMINATION: VITAL SIGNS: Pulse is 73, blood pressure 118/90, respirations 20. HEENT: Conjunctivae normal. NECK: No JVD. CARDIOVASCULAR: S1, S2. RESPIRATIONS: Breath sounds diminished at the bases. ABDOMEN: Soft. NERVOUS SYSTEM: Moves all 4 limbs. No focal deficit. SKIN: No ulcer, rash, bleeding. JOINTS: No active deforming arthropathy. LABORATORY DATA: Reviewed. ASSESSMENT: 1. Recurrent tonic-clonic seizures. 2. History of EtOH. 3. History of asthma. 4. Rule out mass lesion in chest. 5. History of cleft palate. 6. History of solitary kidney. 7. Polysubstance abuse. RECOMMENDATIONS AND DISCUSSION: This is a 38-year-old gentleman presented with multiple complex medical issues. I recommend to continue the current medications. I would recommend Keppra, neurology consultation, EEG. The patient is a high risk for recurrent seizures. We will continue to monitor. Guarded prognosis. Further recommendations to follow. A CT scan showed no acute abnormalities. A few scattered foci in the cast, unclear etiology. We will continue to monitor. The patient might require further repeat testing as an outpatient and follow with Neurology. The chest x-ray is suspected for upper lobe opacity. I would recommend CT scan of the chest also to rule out the possible tumor mass lesion. MMODL / IJN: [id number] /
[2024-08-05] MEDS: THIAMINE 100 MG TAB PO SCH (17:07)
[2024-08-05] MEDS: IBUPROFEN 400 MG TAB PO PRN (17:07)
[2024-08-05] MEDS: KETOROLAC 15 MG/ML 1 ML VIAL IVP PRN (18:30)
[2024-08-05] MEDS: MELATONIN 5 MG TABLET PO SCH (20:34)
[2024-08-05] MEDS: HYDROcodone/APAP 5-325MG 1 EACH TAB PO PRN (20:34)
--- NOTE | 2024-08-06 01:49 | EEG ---
ELECTROENCEPHALOGRAM REPORT PREAMBLE: This is a 38-year-old male with possible seizure. The patient has a history of alcohol abuse. He has been at [facility]. EEG FINDINGS: This is a 21-channel digital EEG recorded with video component, utilizing 10/20 international system with referential and bipolar montages. The background consists of well developed, well regulated, mixed frequencies of predominantly low-voltage fast frequency beta intermixed with some 10 to 11 hertz alpha activity in bihemispheric region. Background is posterior dominant and reactive to eye opening and closing. Photic driving response was not seen. Drowsiness and stage 2 sleep was seen with presence of sleep spindles, vertex waves and slowing of the background. No focal or generalized epileptiform activity was seen. EKG channel showed no obvious arrhythmia. IMPRESSION: This is a normal EEG during wakefulness, drowsiness, and stage 2 sleep. No focal, lateralized, or epileptiform activity was seen. The presence of slightly excessive low- voltage fast frequency beta activity suggests benzodiazepine effect. MMODL / IJN: [id number] /
[2024-08-06] MEDS: PANTOPRAZOLE 40 MG TABLET PO SCH (05:50)
[2024-08-06] MEDS: LORazepam 1 MG/0.5 ML VIAL IV PRN (05:50)
[2024-08-06] MEDS: MULTIVITAMINS, THERA 1 EACH TAB PO SCH (05:50)
[2024-08-06 08:28] LABS: Blood Urea Nitrogen 7.7 mg/dL (9.0-27.0); Calcium 8.4 mg/dL (8.7-10.3); Carbon Dioxide 25.4 mmol/L (21.6-31.8); Chloride 100 mmol/L (96-109); Glucose 121 mg/dL (70-110); Potassium 4.2 mmol/L (3.5-5.5); Sodium 134 mmol/L (135-145)
[2024-08-06] MEDS: hydroCHLOROthiazide 25 MG TAB PO SCH (08:33)
[2024-08-06] MEDS: BUTALB/APAP/CAFF 50-325-40MG TAB PO PRN (08:33)
--- NOTE | 2024-08-06 08:34 | P.CNNES ---
History of Present Illness Consult date: 08/05/24 Requesting physician: Tanya Jones Reason for Consult: New seizure History of Present Illness: Patient is a 38-year-old left-handed male came to the hospital by ambulance yesterday at 9:35 PM for new onset seizure. EMS flowsheet not available in the chart. Patient states that he has been drinking alcohol very heavily, every day for last 4 months. He would drink 12 beers can daily, every day, and would not eat anything, just drinking heavily. He went to [facility] [place] 9 days ago. He was receiving Ativan every 6 hours which he received for the first 6 days of his admission at [facility] [place]. This was stopped about 2-3 days ago. He was walking when he felt it coming on, and he fell, hit back of the head on the door. It was reported patient did lose control of urine. He did bite tip of the tongue as well. EMS was called and he was brought to the hospital. Patient states that while he was in the ER, he had another seizure. I do not see any such documentation in the ED notes. Patient states that in the last 4 months that he has been drinking very heavily, he had couple other seizures, each of them occurred when he would stop drinking, would have a seizure. This is the only time, that seizure happened when he already has been drawn from alcohol. Vital signs on arrival blood pressure 161/110, pulse rate 95, temperature 99.0. Repeat blood pressure 151/106 and then 128/86. Blood test shows normal CBC, sodium 130 potassium 4.6, normal renal and hepatic panel. Lactate was 2.2. Troponin negative. UA negative. Urine drug screen positive for benzodiazepine. Blood alcohol level negative. CT head showed no acute intracranial process. Few scattered foci of gas within the left neck unclear etiology, unclear if this is in the vasculature structure. There appears to be multiple lymph nodes in the anterior left neck which are prominent symmetric. Correlate for lymphadenopathy. No evidence of cervical spine fracture. Moderate multilevel degenerative disc disease. Patient smoked half pack per day for last 5 years. He lives with his aunt. Review of Systems All pertinent positive and negative review of systems mentioned in the HPI, otherwise unremarkable. Past Medical History Past Medical History: Asthma Additional Past Medical History / Comment(s): etoh abuse, solitary kidney, cleft pallate History of Any Multi-Drug Resistant Organisms: None Reported Past Surgical History: No Surgical Hx Reported Past Psychological History: No Psychological Hx Reported Smoking Status: Current every day smoker Medications and Allergies Home Medications Medication Instructions Recorded Confirmed Type Folic Acid 1 mg PO DAILY #30 tablet 07/30/24 08/05/24 Rx Multivitamins, Thera [Multivitamin] 1 tab PO DAILY #30 tablet 07/30/24 08/05/24 Rx Neomycin/Bacitracin/Polymyxinb 1 applic TOPICAL BID #15 gm 07/30/24 08/05/24 Rx [Neosporin Ointment] Pantoprazole Sodium [Protonix] 40 mg PO DAILY #30 tab 07/30/24 08/05/24 Rx Thiamine [Vitamin B-1] 100 mg PO DAILY #30 tablet 07/30/24 08/05/24 Rx Acetaminophen Tab [Tylenol] 650 mg PO Q4H PRN 08/05/24 08/05/24 History Calcium Phos/D3/Magnesium/Zinc 1 tab PO TID PRN 08/05/24 08/05/24 History [Gugcrxq-Lob-Kadm-Vitamin D3] Chlorpheniramine Maleate 4 mg PO Q4H PRN 08/05/24 08/05/24 History [Chlor-Trimeton] Ibuprofen [Motrin Ib] 600 mg PO Q6H PRN 08/05/24 08/05/24 History Loperamide HCl [Imodium A-D] 2 mg PO QID PRN 08/05/24 08/05/24 History Mag Hydrox/Aluminum Hyd/Simeth 30 ml PO Q4H PRN 08/05/24 08/05/24 History [Mylanta Maximum Strength Liq] Melatonin 10 mg PO HS 08/05/24 08/05/24 History cloNIDine HCL [Catapres] 0.1 - 0.3 mg PO Q4H PRN 08/05/24 08/05/24 History hydroCHLOROthiazide [Hydrodiuril] 25 mg PO DAILY 08/05/24 08/05/24 History ondansetron HCL [Zofran] 8 mg PO Q6H PRN 08/05/24 08/05/24 History Allergies Allergy/AdvReac Type Severity Reaction Status Date / Time almond Allergy Unknown Verified 08/05/24 07:38 haloperidol [From Haldol] Allergy Unknown Verified 08/05/24 07:38 walnut Allergy Unknown Verified 08/05/24 07:38 Physical Examination - Vital Signs Vital Signs: Vital Signs Temp Pulse Resp BP Pulse Ox 08/05/24 16:34 98.7 F 73 20 132/96 99 08/05/24 13:40 74 20 130/94 98 08/05/24 11:48 78 20 129/92 97 08/05/24 08:35 98.0 F 73 20 118/90 98 08/05/24 07:16 69 18 120/73 97 08/05/24 03:41 82 18 128/86 97 08/05/24 00:34 84 16 151/106 96 08/04/24 21:38 99.0 F 95 18 161/110 97 Patient is a middle aged Afro-Irish male, in no acute distress. Patient is alert awake oriented to time place and person. Speech and language functions are normal. Patient can name and repeat very well. No aphasia or dysarthria. Attention, concentration and fund of knowledge is adequate. On cranial nerve examination, pupils are equal, round and reacting to light, visual terrell are full on confrontation, with no neglect on double simultaneous stimulation. Extraocular muscles are intact with no nystagmus. Face is symmetric, tongue protrudes to the midline. Palatal elevation and sensation normal, hearing and shoulder shrug normal, facial sensation normal. On muscle strength testing, there is no pronator drift and the strength is normal in arms and legs distally and proximally. Deep tendon reflexes are symmetric 1+ and plantars downgoing. Sensory to touch is equal with no neglect on double simultaneous stimulation. Cerebellar function showed no ataxia for ryofcx-bc-vkrj testing. No dysdiadochokinesia. No ataxia for sska-ou-xmbo testing on either side. Tone and bulk of muscles normal. Gait deferred.. On general examination, there is no carotid bruit or murmur, S1-S2 audible. Chest is clear on consultation. Abdomen is soft nontender. No organomegaly, bowel sounds present. Peripheral pulses are present. No peripheral edema. Results - Laboratory Findings CBC and BMP: 08/04/24 22:19 08/04/24 22:19 Abnormal Lab Findings: Abnormal Labs 08/04/24 08/04/24 08/04/24 22:19 22:19 22:19 Lymphocytes # 0.8 L Sodium 130 L Chloride 96 L Plasma Lactic Acid Jonnie 2.2 H* Creatine Kinase 429 H Urine Ketones U Benzodiazepines Scrn 08/04/24 08/05/24 22:39 01:55 Lymphocytes # Sodium Chloride Plasma Lactic Acid Jonnie 0.5 L Creatine Kinase Urine Ketones Trace H U Benzodiazepines Scrn Detected H Assessment and Plan Assessment: * Seizures, likely due to alcohol withdrawal. Patient stopped drinking alcohol 9 days ago when he went to [facility] [place]. He was receiving Ativan for the first 6 days of admission. Around 2 or 3 days after stopping Ativan he has these seizures. I still suspect the seizure is alcohol withdrawal, and was delayed because of receiving Ativan in the first 6 days. * History of alcohol withdrawal seizure 2 in the past. * History of heavy alcoholism particular he last 4 months. * Tobacco use Plan: * EEG was done, which was normal during wakefulness, drowsiness and stage II sleep. No focal, lateralized or epileptiform activity was seen. The presence of slightly excessive low voltage fast frequency beta activity suggest benzodiazepine effect. * Patient's seizure is likely due to alcohol withdrawal. No indication for antiepileptic medication at this time. If he has any unprovoked seizure in the future, then he could be considered for it. * We will check MRI of the brain to rule out any secondary causes of seizure. * Recommend patient no driving for 6 months, climbing ladders, operating dangerous machineries or unsupervised swimming. * Recommended to abstain from alcoholism and tobacco use. * Neurologically clear, if the MRI comes back normal. * Thank you for the consult.
[2024-08-06 08:50] LABS: Basophils # (A) 0.05 X 10*3/uL (0.00-0.10); Eosinophils # (A) 0.13 X 10*3/uL (0.04-0.35); Eosinophils % (A) 2.6 %; HCT 37.2 % (39.6-50.0); HGB 11.9 g/dL (13.0-17.0); Lymphocytes # (A) 1.49 X 10*3/uL (0.90-5.00); Lymphocytes % (A) 29.6 %; MCH 30.5 pg (27.0-32.0); MCV 95.4 FL (80.0-97.0); Mean Platelet Volume 9.8 FL (9.5-12.2); Monocytes # (A) 0.67 X 10*3/uL (0.20-1.00); Monocytes % (A) 13.3 %; NRBC Per 100 WBC 0 X 10*3/uL (0.00-0.01); Neutrophils # (A) 2.67 X 10*3/uL (1.80-7.70); Neutrophils % (A) 53.1 %; Platelet Count 273 X 10*3/uL (140-440); RDW 15.8 % (11.5-14.5); WBC 5.03 X 10*3/uL (4.50-10.00)
[2024-08-06] MEDS: FOLIC ACID 1 MG TAB PO SCH (12:27)
[2024-08-06 14:50] VITALS: BP 124/73; PULSE 81; RESP 18; TEMP 98.5
--- NOTE | 2024-08-06 15:59 | MR ---
MRI brain without contrast. CLINICAL INDICATION: Male, 38 years old with history of Seizures, Persistent headaches. COMPARISON: None. TECHNIQUE: Multiecho multiplanar images the brain were obtained without contrast. FINDINGS: On the T1-weighted sagittal images, the midline structures including the craniovertebral junction rel ationships are normal. The ventricles, basal cisterns and sulci over the convexities are within normal limits and there is n o mass effect or shift of the midline structures. There is a few small focal areas of abnormal increased signal intensity on FLAIR and T2-weighted imag es which are nonspecific but most likely represent chronic ischemic white matter change. Based on the diffusion-weighted images, there is no diffusion restriction or acute ischemic event. The posterior fossa including the brainstem, fourth ventricle and cerebellar pontine angles appear no rmal. The intraorbital contents appear normal and symmetric. There are mild chronic inflammatory changes in the maxillary sinuses. IMPRESSION: 1. Mild scattered nonspecific white matter abnormalities which are nonspecific but most likely reflec t mild chronic ischemic white matter change. 2. No mass mass effect or shift in midline structures. 3. No diffusion restriction or acute ischemic event. 4. No microhemorrhages on susceptibility-weighted images. 5. Mild chronic inflammatory changes in the maxillary sinuses. [facility], Workstation: RANDY 08/06/2024 3:57 PM
--- NOTE | 2024-08-09 12:29 | P.DS ---
Providers Date of admission: 08/05/24 01:47 Expected date of discharge: 08/06/24 Attending physician: Debra Mir Consults: 08/05/24 01:47 Consult Physician Routine Consulting Provider: Alonso Mckinney Consult Reason/Comments: New seizure Do you want consulting provider notified?: Yes, Notify in am Primary care physician: Stated None Hospital Course: Final diagnosis Recurrent tonic-clonic seizure, possibly withdrawal effect from Ativan Previous history of alcohol withdrawal seizures History of continued ongoing alcohol abuse, currently at [facility] for rehab History of asthma, not in exacerbation Concerning mass lesion in the chest with lymphadenopathy noted on MRI, recommend outpatient follow-up with oncology History of cleft palate History of solitary kidney Polysubstance abuse GI prophylaxis DVT prophylaxis Full code Discharge disposition Patient is being discharged in a stable condition with guarded prognosis to [facility] inpatient alcohol rehab. Patient will follow-up with Dr. Bryan Mir in the outpatient setting upon discharge. Patient is to continue with outpatient follow-up with neurology as scheduled. Continue complete alcohol abstinence. Total time taken is greater than 35 minutes. Hospital course This is a 38-year-old male who was recently admitted from [facility] for witnessed seizure. Patient was recently hospitalized here for EtOH withdrawal and return to [facility] and has not been drinking for over 10 days. Patient was on as needed [id number] Ativan and had been cut off and subsequently the seizures occurred. Possibly secondary to medication effect of withdrawal from Ativan. Patient evaluated by neurology underwent MRI with no acute findings other than some mild lymphadenopathy and will follow-up with outpatient follow-up as patient wants to return to rehab for continued alcohol rehab. Patient has been cleared by consultation and recommend neurology follow-up and establishing with a primary care provider. Patient will be given resources and instructed to follow-up with Dr. Bryan Mir on discharge. Currently no reports of chest pain, shortness of breath, or palpitations. Patient is afebrile. No reports of nausea or vomiting and patient is tolerating diet. [facility]. Physical exam: Gen: This is a 38-year-old male who is awake, alert and oriented x 3, thin built, appears older than stated age HEENT: Head is atraumatic, normocephalic. Pupils equal, round. Sclerae is anicteric. NECK: Supple. No JVD. No lymphadenopathy. No thyromegaly. LUNGS: Clear to auscultation. No wheezes or rhonchi. No intercostal retractions. HEART: S1, S2 are muffled ABDOMEN: Soft. Thin. Bowel sounds are present. No masses. No tenderness. EXTREMITIES: No pedal edema. No calf tenderness. NEUROLOGICAL: Patient is awake, alert and oriented x3. Cranial nerves 2 through 12 are grossly intact. Please refer to medication reconciliation sheet for a list of medications. The impression and plan of care has been dictated by Taty Cornejo, Nurse Practitioner as directed. Dr. Clarke MD I have performed a history and examination and MDM of this patient, discussed the same with the dictator, and agree with the dictator's assessment and plan as written ,documented as a scribe. Based on total visit time, I have performed more than 50% of the visit. Patient Condition at Discharge: Stable Plan - Discharge Summary Discharge Rx Participant: No New Discharge Prescriptions: Continue Folic Acid 1 mg PO DAILY #30 tablet Neomycin/Bacitracin/Polymyxinb [Neosporin Ointment] 1 applic TOPICAL BID #15 gm hydroCHLOROthiazide [Hydrodiuril] 25 mg PO DAILY Acetaminophen Tab [Tylenol] 650 mg PO Q4H PRN PRN Reason: Pain Mag Hydrox/Aluminum Hyd/Simeth [Mylanta Maximum Strength Liq] 30 ml PO Q4H PRN PRN Reason: Gi Upset Loperamide HCl [Imodium A-D] 2 mg PO QID PRN PRN Reason: Loose Stool Calcium Phos/D3/Magnesium/Zinc [Qcikzjk-Lth-Wlrv-Vitamin D3] 1 tab PO TID PRN PRN Reason: Cramping Multivitamins, Thera [Multivitamin (formulary)] 1 tab PO DAILY #30 tablet Pantoprazole Sodium [Protonix] 40 mg PO DAILY #30 tab Thiamine [Vitamin B-1] 100 mg PO DAILY #30 tablet ondansetron HCL [Zofran] 8 mg PO Q6H PRN PRN Reason: Nausea And Vomiting Ibuprofen [Motrin Ib] 600 mg PO Q6H PRN PRN Reason: Pain Melatonin 10 mg PO HS cloNIDine HCL [Catapres] 0.1 - 0.3 mg PO Q4H PRN PRN Reason: BP >160/100 Chlorpheniramine Maleate [Chlor-Trimeton] 4 mg PO Q4H PRN PRN Reason: Allergy Symptoms Discharge Medication List Folic Acid 1 mg PO DAILY #30 tablet 07/30/24 [Rx] Multivitamins, Thera [Multivitamin (formulary)] 1 tab PO DAILY #30 tablet 07/30/24 [Rx] Neomycin/Bacitracin/Polymyxinb [Neosporin Ointment] 1 applic TOPICAL BID #15 gm 07/30/24 [Rx] Pantoprazole Sodium [Protonix] 40 mg PO DAILY #30 tab 07/30/24 [Rx] Thiamine [Vitamin B-1] 100 mg PO DAILY #30 tablet 07/30/24 [Rx] Acetaminophen Tab [Tylenol] 650 mg PO Q4H PRN 08/05/24 [History] Calcium Phos/D3/Magnesium/Zinc [Bgppjsi-Jpy-Gebw-Vitamin D3] 1 tab PO TID PRN 08/05/24 [History] Chlorpheniramine Maleate [Chlor-Trimeton] 4 mg PO Q4H PRN 08/05/24 [History] Ibuprofen [Motrin Ib] 600 mg PO Q6H PRN 08/05/24 [History] Loperamide HCl [Imodium A-D] 2 mg PO QID PRN 08/05/24 [History] Mag Hydrox/Aluminum Hyd/Simeth [Mylanta Maximum Strength Liq] 30 ml PO Q4H PRN 08/05/24 [History] Melatonin 10 mg PO HS 08/05/24 [History] cloNIDine HCL [Catapres] 0.1 - 0.3 mg PO Q4H PRN 08/05/24 [History] hydroCHLOROthiazide [Hydrodiuril] 25 mg PO DAILY 08/05/24 [History] ondansetron HCL [Zofran] 8 mg PO Q6H PRN 08/05/24 [History] Follow up Appointment(s)/Referral(s): David Galindo MD [Medical Doctor] - 1 Week Kimberly Camacho MD [STAFF PHYSICIAN] - 1 Week Abebe Nguyen [STAFF PHYSICIAN] - 1 Week Activity/Diet/Wound Care/Special Instructions: Patient to return to [facility] on discharge Activity as tolerated Follow-up with primary care provider to establish outpatient Follow-up with neurology outpatient Avoid all alcohol use and exposure Discharge/Stand Alone Forms: AA [facility], Who Do I Call?, Community Resources, Inp Substance Abuse Facilities, Outpatient Therapy List, Area PCPs Discharge Disposition: OTHER INSTITUTION NOT DEFINED
== END 2024-08-06 17:25 | disposition other institution (70) ==
LOC: EC 21:35 → 6NMEDSUR 08-05 01:47
PROVIDERS: ADMIT Hospitalist; ATTEND Hospitalist
DX: G40.409 Other generalized epilepsy and epileptic syndromes, not intractable, without status epilepticus (principal); F10.20 Alcohol dependence, uncomplicated; F19.10 Other psychoactive substance abuse, uncomplicated; R59.1 Generalized enlarged lymph nodes; I10 Essential (primary) hypertension; F17.200 Nicotine dependence, unspecified, uncomplicated; J45.909 Unspecified asthma, uncomplicated; Z88.8 Allergy status to other drugs, medicaments and biological substances; Z79.899 Other long term (current) drug therapy; Z87.730 Personal history of (corrected) cleft lip and palate; W22.8XXA Striking against or struck by other objects, initial encounter
CPT/HCPCS: 96376; 96372 ×2; 96361 ×2; 96374; 96375; 99285; 36415 ×2; 95816; 93005; 83880; 80053; 80048; 82550; 83605 ×2; 83735; 84484; 85025 ×2; 81003; 80306; 71045; 72125; 70450; 71250; 70551; G0378 ×2; G0480; J2060 ×2; J1650 ×2; J1953 ×2; J1885; 80320